=== PATIENT | female | born 1940 | race Caucasian/White ===

== ENCOUNTER 2023-02-02 03:42 | Inpatient (IN) | payer BC ==
[~2023-02-02] VITALS: Ht 165.1 cm; Wt 61.4 kg
[~2023-02-02 03:42] MED LIST: CARV-49 PO; CEPH-571 PO
[2023-02-02] MEDS ORDERED: diltiazem 5mg/ml 5ml inj. IV ONE ×3 (04:30→06:55)
[2023-02-02] MEDS ORDERED: normal saline 1000ml 1,000 ML IV ONE (04:30)
[2023-02-02 04:41] LABS: BASOPHILS # (AUTO) 0.1 X10'3 (0-0.2); BASOPHILS % (AUTO) 1.9 % (0-1); EOSINOPHILS # (AUTO) 0.2 X10'3 (0-0.9); EOSINOPHILS % (AUTO) 2.6 % (0-6); HEMATOCRIT 40.2 % (35.0-45.0); HEMOGLOBIN 13.7 g/dl (12.0-16.0); LYMPHOCYTES # (AUTO) 1.8 X10'3 (1.1-4.8); LYMPHOCYTES % (AUTO) 25.9 % (21-51); MEAN CORPUSCULAR HGB CONC 34.1 g/dL (33.0-36.5); MEAN CORPUSCULAR VOLUME 90.9 FL (78-98); MEAN PLATELET VOLUME 7.7 FL (7.4-10.4); MONOCYTES # (AUTO) 0.5 X10'3 (0-0.9); MONOCYTES % (AUTO) 7.5 % (2-12); NEUTROPHILS # (AUTO) 4.3 X10'3 (1.8-7.7); NEUTROPHILS % (AUTO) 62.1 % (42-75); PLATELET COUNT 224 X10'3 (140-440); RED BLOOD COUNT 4.42 X10'6 (4.20-5.60); RED CELL DISTRIBUTION WIDTH 13.9 % (11.5-14.5)
[2023-02-02 05:00] LABS: ALANINE AMINOTRANSFERASE 23 U/L (12-78); ALBUMIN/GLOBULIN RATIO 0.8 (1.1-1.5); ALKALINE PHOSPHATASE 64 IU/L (46-116); ANION GAP 12 (8-16); ASPARTATE AMINO TRANSFERASE 19 U/L (10-37); BILIRUBIN,TOTAL 0.8 MG/DL (0.1-1.0); BLOOD UREA NITROGEN 12 MG/DL (7-18); CALCIUM 8.9 MG/DL (8.5-10.1); CHLORIDE 104 MMOL/L (99-107); CREATININE 0.75 MG/DL (0.40-0.90); GLUCOSE 133 MG/DL (70-104); PRO BRAIN NATRIURETIC PEPTIDE 777 PG/ML (0-450); SODIUM 140 MMOL/L (135-145); TOTAL CARBON DIOXIDE 24.4 MMOL/L (24-32); TOTAL PROTEIN 6.6 G/DL (6.4-8.2); eCRCL 51 ML/MIN; eGFR 74 ML/MIN
[2023-02-02 05:06] LABS: POTASSIUM 2.6 MMOL/L (3.5-5.1)
[2023-02-02] MEDS ORDERED: POTASSIUM BICARB 20meq eff tab 20 MEQ TABLET.EFF PO ONE (05:10)
[2023-02-02] MEDS ORDERED: magnesium 2GM in 50ml NS 50 ML IV ONE (05:10)
[2023-02-02] MEDS ORDERED: potassium Cl 40MEQ/1/2NS 520ml 520 ML IV ONE (05:10)
[2023-02-02] MEDS ORDERED: diltiazem-NS 100mg/100ml 100 ML IV ONE (06:55)
[2023-02-02 07:10] LABS: ELLIPTOCYTES 2+; PLATELET ESTIMATE NORMAL; TOTAL CELLS COUNTED 100
[2023-02-02 07:11] LABS: BURR CELLS FEW; SCHISTOCYTES FEW
[2023-02-02 08:27] LABS: ALANINE AMINOTRANSFERASE 14 U/L (12-78); ALBUMIN 2.6 G/DL (3.4-5.0); ALBUMIN/GLOBULIN RATIO 0.8 (1.1-1.5); ALKALINE PHOSPHATASE 54 IU/L (46-116); ANION GAP 11 (8-16); ASPARTATE AMINO TRANSFERASE 19 U/L (10-37); BILIRUBIN,TOTAL 0.5 MG/DL (0.1-1.0); BLOOD UREA NITROGEN 11 MG/DL (7-18); BUN/CREATININE RATIO 17.5 (10.0-20.0); CALCIUM 8.2 MG/DL (8.5-10.1); CHLORIDE 107 MMOL/L (99-107); CREATININE 0.63 MG/DL (0.40-0.90); GLUCOSE 118 MG/DL (70-104); MAGNESIUM 2.5 MG/DL (1.5-2.4); POTASSIUM 3.6 MMOL/L (3.5-5.1); SODIUM 141 MMOL/L (135-145); TOTAL CARBON DIOXIDE 23.5 MMOL/L (24-32); TOTAL PROTEIN 5.9 G/DL (6.4-8.2); eCRCL 61 ML/MIN; eGFR 90 ML/MIN
[2023-02-02] MEDS ORDERED: potassium Cl 20 mEq SR tablet PO PRN (08:55)
[2023-02-02] MEDS ORDERED: morphine 2 MG/ML inj. syringe IV PRN (08:55)
[2023-02-02] MEDS ORDERED: diltiazem-NS 100mg/100ml 100 ML IV SCH (08:55)
[2023-02-02] MEDS ORDERED: acetaminophen 325mg tablet PO PRN ×2 (08:55)
[2023-02-02] MEDS ORDERED: potassium Cl 40MEQ/1/2NS 520ml 520 ML IV PRN (08:55)
[2023-02-02] MEDS ORDERED: magnesium 2GM in 50ml NS 50 ML IV PRN (08:55)
[2023-02-02] MEDS ORDERED: magnesium 4gm in 100ml NS 100 ML IV PRN (08:55)
[2023-02-02] MEDS ORDERED: HYDROcodone/acetaminophen 5mg/325mg tablet PO PRN (08:55)
[2023-02-02] MEDS ORDERED: magnesium Cl slow-release 64mg tablet PO PRN (08:55)
[2023-02-02] MEDS ORDERED: ondansetron/PF 4mg/2ml inj IV PRN (08:55)
[2023-02-02 09:16] LABS: C DIFF ANTIGEN NEGATIVE (NEGATIVE); C DIFF SPECIMEN=DIARRHEA? ACCEPTABLE; C DIFFICILE TOXINS A&B NEGATIVE (Neg)
[2023-02-02] MEDS: normal saline 1000ml 1,000 ML IV SCH (09:20)
[2023-02-02] MEDS ORDERED: ATOR40TA72 PO (11:25)
[2023-02-02] MEDS ORDERED: SYN0.088T PO (11:25)
[2023-02-02] MEDS ORDERED: CARV6.253 PO (11:25)
[2023-02-02] MEDS ORDERED: APIX5TAB3 PO (11:25)
[2023-02-02] MEDS ORDERED: LEVO125T68 PO (13:00)
[2023-02-02] MEDS ORDERED: ASPI-611 PO (13:01)
[2023-02-02] MEDS ORDERED: MULT-1249 PO (13:01)
[2023-02-02 18:01] LABS: THYROID STIMULATING HORMONE 0.59 ulU/ml (0.34-4.50)
[2023-02-02] MEDS ORDERED: loperamide 2mg capsule PO PRN (18:30)
[2023-02-02] MEDS: amiodarone 200mg tablet PO SCH (19:43)
[2023-02-02] MEDS: apixaban 5mg tablet PO SCH (19:43)
[2023-02-02] MEDS: carvedilol 6.25mg tablet PO SCH (19:43)
[2023-02-02] MEDS ORDERED: atorvastatin 20mg tablet PO SCH (21:00)
--- NOTE | 2023-02-02 21:17 | NUR ---
CHANGED PT TO HOSPITAL BED FOR COMFORT, WARM BLANKETS AND PILLOWS PROVIDED, POSITIONED FOR COMFORT, AND LIGHTS OFF
[2023-02-03] MEDS: loperamide 2mg capsule PO PRN ×2 (01:56→09:32)
[2023-02-03] MEDS ORDERED: levoTHYROXINE 125mcg tablet PO SCH (07:00)
[2023-02-03] MEDS: normal saline 1000ml 1,000 ML IV SCH ×3 (07:18→23:38)
[2023-02-03] MEDS: carvedilol 6.25mg tablet PO SCH ×2 (07:20→19:49)
[2023-02-03] MEDS: amiodarone 200mg tablet PO SCH ×2 (07:20→19:45)
[2023-02-03] MEDS: apixaban 5mg tablet PO SCH ×2 (07:21→19:49)
[2023-02-03 07:24] LABS: BASOPHILS % (AUTO) 0.2 % (0-1); EOSINOPHILS # (AUTO) 0.1 X10'3 (0-0.9); EOSINOPHILS % (AUTO) 2.1 % (0-6); HEMATOCRIT 38.1 % (35.0-45.0); HEMOGLOBIN 12.6 g/dl (12.0-16.0); LYMPHOCYTES # (AUTO) 2.3 X10'3 (1.1-4.8); LYMPHOCYTES % (AUTO) 31.7 % (21-51); MEAN CORPUSCULAR HEMOGLOBIN 30.9 PG (27.0-31.0); MEAN CORPUSCULAR HGB CONC 33.2 g/dL (33.0-36.5); MONOCYTES # (AUTO) 0.9 X10'3 (0-0.9); MONOCYTES % (AUTO) 12.4 % (2-12); NEUTROPHILS # (AUTO) 3.8 X10'3 (1.8-7.7); NEUTROPHILS % (AUTO) 53.6 % (42-75); PLATELET COUNT 208 X10'3 (140-440); RED CELL DISTRIBUTION WIDTH 14.4 % (11.5-14.5); WHITE BLOOD COUNT 7.1 X10'3 (4.5-11.0)
[2023-02-03] MEDS: aspirin 81mg tab.chew PO SCH (07:26)
[2023-02-03] MEDS ORDERED: enoxaparin 40mg/0.4ml syringe SUBCUT SCH (08:00)
[2023-02-03 08:08] LABS: ALANINE AMINOTRANSFERASE 16 U/L (12-78); ALBUMIN 2.5 G/DL (3.4-5.0); ALBUMIN/GLOBULIN RATIO 0.7 (1.1-1.5); ALKALINE PHOSPHATASE 57 IU/L (46-116); ANION GAP 10 (8-16); ASPARTATE AMINO TRANSFERASE 18 U/L (10-37); BILIRUBIN,TOTAL 0.7 MG/DL (0.1-1.0); BLOOD UREA NITROGEN 9 MG/DL (7-18); BUN/CREATININE RATIO 12.9 (10.0-20.0); CALCIUM 8.2 MG/DL (8.5-10.1); CHLORIDE 105 MMOL/L (99-107); GLUCOSE 106 MG/DL (70-104); POTASSIUM 3.2 MMOL/L (3.5-5.1); SODIUM 140 MMOL/L (135-145); TOTAL CARBON DIOXIDE 25.4 MMOL/L (24-32); TOTAL PROTEIN 6.1 G/DL (6.4-8.2); eCRCL 55 ML/MIN; eGFR 80 ML/MIN
[2023-02-03 10:57] LABS: MAGNESIUM 2.1 MG/DL (1.5-2.4)
[2023-02-03] MEDS ORDERED: diphenoxylate/atropine tablet (Lomotil) PO SCH ×2 (12:01→14:00)
[2023-02-03] MEDS: loperamide 2mg capsule PO SCH ×5 (12:10→23:36)
--- NOTE | 2023-02-03 12:29 | NUR ---
STOOL SAMPLE COLLECTED, LABELED AND WALKED TO LAB BY THIS CRAFT RECRUITER
[2023-02-03] MEDS ORDERED: bismuth subsalicylate 262mg chew tablet PO PRN (12:36)
[2023-02-03] MEDS ORDERED: bismuth subsalicylate 262mg/15ml oral suspension PO PRN ×2 (12:38→12:40)
[2023-02-03] MEDS ORDERED: bismuth subsalicylate 262mg/15ml oral suspension PO SCH (13:40)
[2023-02-03 14:12] VITALS: BP 107/49; PULSE 67; RESP 18; TEMP 97.1; O2SAT 92
--- NOTE | 2023-02-03 14:29 | NUR ---
Patient on the unit. Family at bedside. Patient has her home medications. Family will take home medications.
[2023-02-03 15:00] VITALS: RESP 16
[2023-02-03] MEDS: bismuth subsalicylate 262mg/15ml oral suspension PO SCH ×3 (16:53→23:36)
[2023-02-03] MEDS ORDERED: ondansetron 4mg rapidly disintigrating tab PO PRN (17:35)
[2023-02-03 18:00] VITALS: BP 113/57; PULSE 75; RESP 13; TEMP 98.2; O2SAT 98
--- NOTE | 2023-02-03 18:26 | NUR ---
Patient in room PCU 3016. I have received report from Erna SIMMS and had the opportunity to ask questions and assume patient care.
--- NOTE | 2023-02-03 20:00 | NUR ---
pt refused amiodarone as ordered. stated that she doesnt like how it makes her feel and that she feel weak. educated pt but pt does not want it. will continue to monitor
[2023-02-03 22:30] VITALS: BP 114/54; PULSE 68; RESP 18; TEMP 98; O2SAT 98
[2023-02-03] MEDS: potassium Cl 20 mEq SR tablet PO PRN (23:36)
[2023-02-04 02:30] VITALS: BP 124/59; PULSE 61; RESP 18; TEMP 98; O2SAT 98
[2023-02-04] MEDS: bismuth subsalicylate 262mg/15ml oral suspension PO SCH ×6 (03:29→23:46)
[2023-02-04] MEDS: loperamide 2mg capsule PO SCH ×6 (03:30→23:46)
[2023-02-04 06:22] LABS: BASOPHILS % (AUTO) 0.3 % (0-1); EOSINOPHILS # (AUTO) 0.2 X10'3 (0-0.9); EOSINOPHILS % (AUTO) 3.2 % (0-6); HEMATOCRIT 32.7 % (35.0-45.0); HEMOGLOBIN 11.1 g/dl (12.0-16.0); LYMPHOCYTES # (AUTO) 1.8 X10'3 (1.1-4.8); LYMPHOCYTES % (AUTO) 28.8 % (21-51); MEAN CORPUSCULAR HEMOGLOBIN 31.3 PG (27.0-31.0); MEAN PLATELET VOLUME 7.9 FL (7.4-10.4); MONOCYTES # (AUTO) 0.8 X10'3 (0-0.9); MONOCYTES % (AUTO) 12.2 % (2-12); NEUTROPHILS # (AUTO) 3.5 X10'3 (1.8-7.7); NEUTROPHILS % (AUTO) 55.5 % (42-75); PLATELET COUNT 191 X10'3 (140-440); RED BLOOD COUNT 3.55 X10'6 (4.20-5.60); RED CELL DISTRIBUTION WIDTH 13.7 % (11.5-14.5); WHITE BLOOD COUNT 6.3 X10'3 (4.5-11.0)
[2023-02-04 06:30] VITALS: BP 113/55; PULSE 67; RESP 12; TEMP 97.7; O2SAT 96
[2023-02-04 06:30] LABS: ALANINE AMINOTRANSFERASE 17 U/L (12-78); ALBUMIN 2.1 G/DL (3.4-5.0); ALBUMIN/GLOBULIN RATIO 0.7 (1.1-1.5); ALKALINE PHOSPHATASE 62 IU/L (46-116); ANION GAP 5 (8-16); ASPARTATE AMINO TRANSFERASE 18 U/L (10-37); BILIRUBIN,TOTAL 0.4 MG/DL (0.1-1.0); BLOOD UREA NITROGEN 8 MG/DL (7-18); BUN/CREATININE RATIO 9.6 (10.0-20.0); CHLORIDE 108 MMOL/L (99-107); CREATININE 0.83 MG/DL (0.40-0.90); GLUCOSE 101 MG/DL (70-104); SODIUM 143 MMOL/L (135-145); TOTAL CARBON DIOXIDE 29.6 MMOL/L (24-32); TOTAL PROTEIN 5.2 G/DL (6.4-8.2); eCRCL 46 ML/MIN; eGFR 66 ML/MIN
--- NOTE | 2023-02-04 06:30 | NUR ---
Patient in room PCU 3016. I have received report from Emely SIMMS and had the opportunity to ask questions and assume patient care.
--- NOTE | 2023-02-04 06:30 | NUR ---
Problems reprioritized. Patient report given, questions answered & plan of care reviewed with Marquita SIMMS.
[2023-02-04] MEDS: carvedilol 6.25mg tablet PO SCH ×2 (08:00→20:00)
[2023-02-04] MEDS: amiodarone 200mg tablet PO SCH ×2 (08:00→20:00)
[2023-02-04] MEDS: aspirin 81mg tab.chew PO SCH (08:00)
[2023-02-04] MEDS: levoTHYROXINE 100mcg tablet PO SCH (08:13)
[2023-02-04] MEDS: apixaban 5mg tablet PO SCH ×2 (08:15→19:08)
[2023-02-04] MEDS: potassium Cl 20 mEq SR tablet PO PRN ×3 (08:16→23:46)
--- NOTE | 2023-02-04 08:38 | NUR ---
Patient refused to take Amiodarone and Coreg today, Patient would like to speak with the Programming Development Project Manager. Patient states Dr Shepherd had her on the amiodarone which was causing her diarrhea so he took her off and changed to Coreg. Now the Coreg is causing her issues. Patient will hold off for now until she speaks with the Programming Development Project Manager. Ivana Avalos is aware
[2023-02-04 08:43] VITALS: RESP 16
[2023-02-04] MEDS ORDERED: Potassium Cl inj 20 MEQ in normal saline 1000ml 990 ML IV SCH (09:30)
--- NOTE | 2023-02-04 10:04 | NUR ---
Dr Peacock and Resident at patient bedside. Patient agitated, Per Dr Peacock for replacement on K+ of 3.0 today for the next 2 doses only given 20 MEQ each dose. Also, recheck patients K+ and Mg at 1600.
[2023-02-04 10:29] LABS: MAGNESIUM 1.9 MG/DL (1.5-2.4)
[2023-02-04] MEDS: potassium Cl 20mEq in NS 1,000 ML IV SCH ×2 (12:16→23:45)
[2023-02-04 12:30] VITALS: BP 113/65; PULSE 79; RESP 18; TEMP 97.7; O2SAT 90
--- NOTE | 2023-02-04 12:30 | NUR ---
Left message on Dr Allen cell v/m to call me back regarding + BC, Also, patient understands the limited code status and would like to remain a limited code no intubation/ ventilation.
[2023-02-04 14:47] VITALS: BP 103/46; PULSE 69; RESP 16; TEMP 98; O2SAT 98
[2023-02-04] MEDS ORDERED: aspirin 81mg tab.chew PO SCH (16:10)
--- NOTE | 2023-02-04 17:00 | NUR ---
Dr Peacock aware of patients + BC GM + Cocci in clusters. Dr Peacock believes this to be contaminant. Dr Peacock is aware I will page her with patients K+ Mg Results
[2023-02-04 17:51] LABS: MAGNESIUM 1.8 MG/DL (1.5-2.4)
--- NOTE | 2023-02-04 18:04 | NUR ---
PAGER ID: [phone] MESSAGE: Marquita PCU [id number] Re: Gregory [id number] K+ 3.0 Mg 1.8 please call for instructions Addendum: 02/04/23 at 1819 by Marquita Gross RN Received orders to replace K+ per protocol, add a magnesium on to labs
--- NOTE | 2023-02-04 18:55 | NUR ---
Problems reprioritized. Patient report given, questions answered & plan of care reviewed with Emely SIMMS.
--- NOTE | 2023-02-04 20:00 | NUR ---
pt refuses coreg and cordarone stating they give her diarrhea and that is what makes her feel funny. educated pt. will continue to monitor
[2023-02-04 23:00] VITALS: BP 116/71; PULSE 112; RESP 18; TEMP 97.9; O2SAT 97
[2023-02-05 03:30] VITALS: BP 122/59; PULSE 80; RESP 18; TEMP 97.9; O2SAT 92
[2023-02-05] MEDS: bismuth subsalicylate 262mg/15ml oral suspension PO SCH ×2 (03:38→09:52)
[2023-02-05] MEDS: potassium Cl 20 mEq SR tablet PO PRN (03:38)
[2023-02-05] MEDS: loperamide 2mg capsule PO SCH ×2 (03:38→08:46)
--- NOTE | 2023-02-05 06:08 | NUR ---
Problems reprioritized. Patient report given, questions answered & plan of care reviewed with Marquita SIMMS.
[2023-02-05 06:30] VITALS: BP 112/54; PULSE 80; RESP 17; TEMP 97.8; O2SAT 97
--- NOTE | 2023-02-05 06:52 | NUR ---
Patient in room PCU 3016. I have received report from Emely SIMMS and had the opportunity to ask questions and assume patient care.
[2023-02-05 07:08] VITALS: RESP 16
[2023-02-05 07:27] LABS: BASOPHILS % (AUTO) 0.3 % (0-1); EOSINOPHILS # (AUTO) 0.1 X10'3 (0-0.9); HEMOGLOBIN 12.1 g/dl (12.0-16.0); LYMPHOCYTES # (AUTO) 1.8 X10'3 (1.1-4.8); MONOCYTES # (AUTO) 0.9 X10'3 (0-0.9); RED CELL DISTRIBUTION WIDTH 14.2 % (11.5-14.5)
[2023-02-05 07:29] LABS: EOSINOPHILS % (AUTO) 1.7 % (0-6); HEMATOCRIT 36.4 % (35.0-45.0); LYMPHOCYTES % (AUTO) 28.2 % (21-51); MEAN CORPUSCULAR HEMOGLOBIN 30.6 PG (27.0-31.0); MEAN CORPUSCULAR HGB CONC 33.1 g/dL (33.0-36.5); MEAN CORPUSCULAR VOLUME 92.5 FL (78-98); MEAN PLATELET VOLUME 8.1 FL (7.4-10.4); MONOCYTES % (AUTO) 14.3 % (2-12); NEUTROPHILS # (AUTO) 3.5 X10'3 (1.8-7.7); NEUTROPHILS % (AUTO) 55.5 % (42-75); PLATELET COUNT 234 X10'3 (140-440); RED BLOOD COUNT 3.94 X10'6 (4.20-5.60); WHITE BLOOD COUNT 6.3 X10'3 (4.5-11.0)
[2023-02-05 07:49] LABS: ALANINE AMINOTRANSFERASE 19 U/L (12-78); ALBUMIN 2.3 G/DL (3.4-5.0); ALBUMIN/GLOBULIN RATIO 0.6 (1.1-1.5); ALKALINE PHOSPHATASE 62 IU/L (46-116); ANION GAP 6 (8-16); ASPARTATE AMINO TRANSFERASE 21 U/L (10-37); BILIRUBIN,TOTAL 0.4 MG/DL (0.1-1.0); BLOOD UREA NITROGEN 4 MG/DL (7-18); BUN/CREATININE RATIO 5.6 (10.0-20.0); CALCIUM 7.9 MG/DL (8.5-10.1); CHLORIDE 107 MMOL/L (99-107); CREATININE 0.71 MG/DL (0.40-0.90); GLUCOSE 105 MG/DL (70-104); MAGNESIUM 1.7 MG/DL (1.5-2.4); POTASSIUM 4.1 MMOL/L (3.5-5.1); SODIUM 140 MMOL/L (135-145); TOTAL CARBON DIOXIDE 26.6 MMOL/L (24-32); eCRCL 53 ML/MIN; eGFR 78 ML/MIN
[2023-02-05] MEDS: carvedilol 6.25mg tablet PO SCH (08:00)
[2023-02-05] MEDS: amiodarone 200mg tablet PO SCH (08:00)
[2023-02-05] MEDS ORDERED: LEVO100T9 PO (08:25)
[2023-02-05] MEDS ORDERED: BISM-51 PO (08:25)
[2023-02-05] MEDS ORDERED: LOPE2CAP PO (08:25)
[2023-02-05] MEDS: apixaban 5mg tablet PO SCH (08:46)
[2023-02-05] MEDS: levoTHYROXINE 100mcg tablet PO SCH (08:46)
--- NOTE | 2023-02-05 10:51 | NUR ---
Patient discharge instructions reviewed with patient and patient verbalized understanding. Patient is waiting for family to come and pick her up and bring her clothes. Patients will still need her IV dc'd on discharge and her Tele dc'd
[2023-02-05 10:57] LABS: TOTAL CELLS COUNTED 100
[2023-02-05 10:58] LABS: PLATELET ESTIMATE NORMAL
[2023-02-05 11:01] LABS: BURR CELLS FEW; ELLIPTOCYTES FEW
[2023-02-05 11:05] LABS: TOXIC GRANULATION 1+; TOXIC VACUOLATION FEW
--- NOTE | 2023-02-05 11:30 | NUR ---
Patient states she has all her belongings. Patient take to sisters vehicle via wheelchair
== END 2023-02-05 12:00 | disposition home or self-care (01) | DRG 641 ==
LOC: ER 03:43 → ED HOLD 09:02 → PCU 3S 02-03 13:27
PROVIDERS: ADMIT Internal Medicine; ATTEND Internal Medicine
DX: E87.6 Hypokalemia (principal); I50.32 Chronic diastolic (congestive) heart failure; I48.92 Unspecified atrial flutter; I48.0 Paroxysmal atrial fibrillation; K58.9 Irritable bowel syndrome, unspecified; I11.0 Hypertensive heart disease with heart failure; Z20.822 Contact with and (suspected) exposure to COVID-19; E03.9 Hypothyroidism, unspecified; E78.5 Hyperlipidemia, unspecified; I25.10 Atherosclerotic heart disease of native coronary artery without angina pectoris; I25.9 Chronic ischemic heart disease, unspecified; Z79.01 Long term (current) use of anticoagulants; Z79.899 Other long term (current) drug therapy; Z90.710 Acquired absence of both cervix and uterus; Z82.3 Family history of stroke; Z87.891 Personal history of nicotine dependence; Z95.5 Presence of coronary angioplasty implant and graft; Z86.73 Personal history of transient ischemic attack (TIA), and cerebral infarction without residual deficits; Z82.49 Family history of ischemic heart disease and other diseases of the circulatory system; Z88.0 Allergy status to penicillin
CPT/HCPCS: 36415; 71045; 80053; 83735; 83880; 84132; 84145; 84443; 84484; 85007; 85025; 87040; 87045; 87046; 87077; 87081; 87186; 87324; 87449; 87811; 89055; 93005; 93306; 97116; 97161; 97530; 99285; C2617; G0378; J3475; J3480; J3490; J7030

== ENCOUNTER 2023-04-02 06:40 | Inpatient (IN) | payer BC ==
[2023-04-01 10:59] LABS: BASOPHILS % (AUTO) 0.6 % (0-1); EOSINOPHILS # (AUTO) 0.1 X10'3 (0-0.9); EOSINOPHILS % (AUTO) 1.3 % (0-6); LYMPHOCYTES # (AUTO) 1.5 X10'3 (1.1-4.8); LYMPHOCYTES % (AUTO) 28.9 % (21-51); MEAN CORPUSCULAR HEMOGLOBIN 31.5 PG (27.0-31.0); MEAN CORPUSCULAR HGB CONC 33.1 g/dL (33.0-36.5); MEAN CORPUSCULAR VOLUME 95.1 FL (78-98); MEAN PLATELET VOLUME 7.3 FL (7.4-10.4); MONOCYTES # (AUTO) 0.3 X10'3 (0-0.9); MONOCYTES % (AUTO) 6.4 % (2-12); NEUTROPHILS # (AUTO) 3.2 X10'3 (1.8-7.7); NEUTROPHILS % (AUTO) 62.8 % (42-75); PRE OP HEMATOCRIT 38.5 % (35.0-45.0); PRE OP HEMOGLOBIN 12.7 g/dL (12.0-16.0); PRE OP PLATELET COUNT 255 X10'3 (140-440); PRE OP WHITE BLOOD COUNT 5.1 10'3 (4.8-10.8); RED BLOOD COUNT 4.05 X10'6 (4.20-5.60); RED CELL DISTRIBUTION WIDTH 15.8 % (11.5-14.5)
[2023-04-01 11:01] LABS: BILIRUBIN,URINE NEGATIVE (Neg); CLARITY,URINE SLIGHTLY CLOUDY (Clear); COLOR,URINE YELLOW (Yellow); GLUCOSE, URINE NEGATIVE (Neg); KETONES,URINE NEGATIVE (Neg); LEUKOCYTE ESTERASE ,URINE LARGE (Neg); NITRITES, URINE NEGATIVE (Neg); OCCULT BLOOD,URINE TRACE-INTACT (Neg); PH,URINE 6.5 (4.8-8.0); PROTEIN,URINE NEGATIVE (Neg); UROBILINOGEN,URINE 0.2 E.U/dL (0.2-1.0)
[2023-04-01 11:08] LABS: SQUAMOUS EPITHELIAL CELL,UR MANY /LPF (FEW); UA COLLECTION TYPE VOIDED
[2023-04-01 11:09] LABS: TRANSITIONAL EPI CELLS,URINE MANY /HPF
[2023-04-01 11:10] LABS: WBC,URINE 30-50 /HPF (0-4)
[2023-04-01 11:11] LABS: BACTERIA,URINE 2+ /HPF (Neg)
[2023-04-01 11:15] LABS: PRE OP PROTIME 10.7 SECONDS (9.0-12.0)
[2023-04-01 11:28] LABS: ALBUMIN 3.4 G/DL (3.4-5.0); ALBUMIN/GLOBULIN RATIO 1.1 (1.1-1.5); ALKALINE PHOSPHATASE 66 IU/L (46-116); BLOOD UREA NITROGEN 14 MG/DL (7-18); BUN/CREATININE RATIO 17.9 (10.0-20.0); CALCIUM 9.2 MG/DL (8.5-10.1); CHLORIDE 107 MMOL/L (99-107); CREATININE 0.78 MG/DL (0.40-0.90); PRE OP ALT 26 U/L (30-65); PRE OP ANION GAP 3 (8-16); PRE OP AST 20 U/L (10-37); PRE OP BILIRUB, TOTAL 0.4 MG/DL (0.0-1.0); PRE OP GLUCOSE 75 MG/DL (70-104); PRE OP POTASSIUM 3.9 MMOL/L (3.4-5.1); PRE OP SODIUM 142 MMOL/L (135-145); TOTAL CARBON DIOXIDE 32.3 MMOL/L (24-32); TOTAL PROTEIN 6.6 G/DL (6.4-8.2); eGFR 70 ML/MIN
[2023-04-02] VITALS (24 sets, daily range): BP systolic 102–134; BP diastolic 54–87; PULSE 70–93; RESP 12–24; TEMP 97.1–97.5; O2SAT 87–100
[~2023-04-02] VITALS: Ht 165.1 cm; Wt 97.1 kg
[~2023-04-02 06:40] MED LIST changes: +APIX5TAB3 PO; +ASPI-611 PO; +ATOR80TA PO; +CALCIUM PO; -CARV-49 PO; -CEPH-571 PO; +DOCO1CAP11 PO; +LEVO125T68 PO; +MULTIVITAMIN PO; +clindamycin-Cleocin 900mg/D5W 50 ML IV ONE; +famotidine 20mg tablet PO ONE; +nitroPRUSSIDE (NIPRIDE) (200MCG/ML) 100ML Drip IV SCH; +ondansetron/PF 4mg/2ml inj IV PRN; +phenylephrine inj 50 MG in normal saline 250ml IV solN IV SCH; +ringers solution, lacted 1,000 ML IV SCH; +vancomycin/NS 1 GM in NS 250 ML IV ONE
[2023-04-02] MEDS ORDERED: meperidine/PF 25mg/ml syringe IV PRN ×3 (07:25)
[2023-04-02] MEDS ORDERED: morphine 4 MG/ML inj SYRINge IV PRN (07:25)
[2023-04-02] MEDS ORDERED: proCHLORperazine 10 MG/2 ml inj IV PRN ×2 (07:25→10:30)
[2023-04-02] MEDS ORDERED: ondansetron/PF 4mg/2ml inj IV PRN ×2 (07:25→10:30)
[2023-04-02] MEDS ORDERED: ringers solution, lacted 1,000 ML IV SCH (07:25)
[2023-04-02] MEDS ORDERED: morphine 2 MG/ML inj. syringe IV PRN (07:25)
[2023-04-02] MEDS ORDERED: LIDOcaine 1% (10mg/ml) 2ml vial ONE (08:29)
[2023-04-02] MEDS ORDERED: midazolam 1 mg/ML 2ml injection ONE (08:51)
[2023-04-02] MEDS ORDERED: fentaNYL/PF 50MCG/1 ML 2ML syringe ONE (08:51)
[2023-04-02] MEDS ORDERED: dexamethasone sod phosphate 4mg/ml inj. ONE (09:08)
[2023-04-02] MEDS ORDERED: neostigmine methylsulfate 1 MG/ML 10ml vial ONE (09:08)
[2023-04-02] MEDS ORDERED: glycopyrrolate 0.2mg/ml inj ONE (09:08)
[2023-04-02] MEDS ORDERED: ondansetron/PF 4mg/2ml inj ONE (09:08)
[2023-04-02] MEDS ORDERED: sevoflurane 250ml liquid IH ONE (09:08)
[2023-04-02] MEDS ORDERED: iohexol 350 MG/ML 50ML vial IV ONE ×2 (09:09→10:20)
[2023-04-02] MEDS ORDERED: rocuronium 10mg/ml inj IV ONE (10:30)
[2023-04-02] MEDS ORDERED: magnesium 2GM in 50ml NS 50 ML IV PRN (10:30)
[2023-04-02] MEDS ORDERED: labetalol 20mg/4ml (5mg/ml) syringe IV PRN (10:30)
[2023-04-02] MEDS ORDERED: pantoprazole 40mg Tablet.DR PO PRN (10:30)
[2023-04-02] MEDS ORDERED: potassium Cl 20mEq/100mL bag 100 ML IV PRN (10:30)
[2023-04-02] MEDS ORDERED: magnesium 4gm in 100ml NS 100 ML IV PRN (10:30)
[2023-04-02] MEDS ORDERED: potassium Cl 40MEQ/1/2NS 520ml 520 ML IV PRN (10:30)
[2023-04-02] MEDS ORDERED: potassium CL 10mEq/100ml bag 100 ML IV PRN (10:30)
[2023-04-02] MEDS ORDERED: potassium Cl 40MEQ/270ML bag 250 ML IV PRN (10:30)
[2023-04-02] MEDS ORDERED: heparin 1,000unit/ml 10ml vial 10 ML ONE (10:30)
[2023-04-02] MEDS ORDERED: hydrALAZINE 20mg/ml inj. IV PRN (10:30)
[2023-04-02] MEDS ORDERED: acetaminophen 325mg tablet PO PRN (10:30)
[2023-04-02] MEDS ORDERED: diphenhydrAMINE 25mg capsule PO PRN (10:30)
[2023-04-02] MEDS ORDERED: ALPRAZolam 0.25mg tablet PO PRN (10:30)
[2023-04-02] MEDS ORDERED: propofol inj 20 ML IV ONE (10:30)
[2023-04-02] MEDS ORDERED: docusate sod 100mg capsule PO PRN (10:30)
[2023-04-02] MEDS ORDERED: potassium Cl 20 mEq SR tablet PO PRN (10:30)
--- NOTE | 2023-04-02 10:40 | NUR ---
Received from OR via BED, accompanied by Anesthesiologist DR WOMACK and report given by Anesthesiologist AND RN ASSESSMENT. PT DROWSY BUT APPROPRIATE, STATES SHE IS COMFORTABLE. RIGHT GROIN W/SMALL GAUZE DRSG W/STOP COCK AND FIGURE [address], CDI, SOFT, NO S/S OF HEMATOMA, OOZING OR SWELLING. PT NEURO CHECKS INTACT, TONGUE MIDLINE, SMILE AND FROWN SYMMETRICAL, EYES OPEN AND CLOSE EQUAL, PUSH PULL/DOUGH MOLDER EQUAL STRENGTH BILAT UPPER EXTREMITIES, PUSH/PULL EQUAL STRENGTH BILAL LOWER EXTREMITIES. Addendum: 04/02/23 at 1126 by Sharri Draper RN Amended: Links added.
--- NOTE | 2023-04-02 11:55 | NUR ---
STOP COCK AND FIGURE 8 STITCH D/CD, NO BLEEDING OR OOZING, SMALL GAUZE DRSG APPLIED W/CLEAR DRSG PLACED OVER GAUZE. RIGHT RADIAL ARTERIAL LINE D/CD, PRESSURE HELD, HEMOSTASIS ACHIEVED, GAUZE DRSG W/COBAN PLACED. Addendum: 04/02/23 at 1207 by Sharri Draper RN Amended: Links added.
--- NOTE | 2023-04-02 12:40 | NUR ---
Report called to receiving nurse. Transferred ON TRANSPORT CM via BED W/2 BAGS OF Belongings, FRONT WHEEL SEATED WALKER TO ROOM 3024B. BLL, CALL LIGHT GIVEN, SIDE RAILS UP X 2, TELE AND VS MACHINE ATTACHED TO PT. RECEIVING RN AT BEDSIDE TO RECEIVE PT, ASSESSED RIGHT GROIN W/RN, NO CHANGES NOTED, SITE REMAINS SOFT W/NO OOZING OR SWELLING. RIGHT RADIAL SITE REMAINS W/O OOZING OR SWELLING WELL. PT REMAINS COMFORTABLE. Special Issues communicated to receiving nurse. YES. Addendum: 04/02/23 at 1255 by Sharri Draper RN Amended: Links added.
[2023-04-02] MEDS: normal saline 1000ml 1,000 ML IV SCH ×2 (13:00→20:30)
[2023-04-02] MEDS: sod chloride 0.9% 10ml flush syringe IV SCH (16:06)
[2023-04-02] MEDS ORDERED: ciprofloxacin 250mg tablet PO ONE (20:00)
[2023-04-02] MEDS ORDERED: apixaban 5mg tablet PO SCH (20:00)
[2023-04-02] MEDS: OMEGA-3/DHA/EPA/FISH OIL 1 EACH CAPSULE.DR PO SCH (20:22)
[2023-04-03] MEDS: sod chloride 0.9% 10ml flush syringe IV SCH ×2 (00:02→07:42)
[2023-04-03 00:15] VITALS: BP 112/62; PULSE 83; RESP 18; O2SAT 93
[2023-04-03 02:00] VITALS: BP 119/70; PULSE 87; RESP 18; TEMP 97.3; O2SAT 87
[2023-04-03 04:15] VITALS: BP 117/64; PULSE 78; RESP 15; O2SAT 77
[2023-04-03 06:00] VITALS: BP 125/71; PULSE 81; RESP 18; TEMP 97.5; O2SAT 97
[2023-04-03 06:52] LABS: BASOPHILS % (AUTO) 0.3 % (0-1); EOSINOPHILS % (AUTO) 0 % (0-6); HEMATOCRIT 33.8 % (35.0-45.0); HEMOGLOBIN 11.3 g/dl (12.0-16.0); LYMPHOCYTES # (AUTO) 1.4 X10'3 (1.1-4.8); LYMPHOCYTES % (AUTO) 17.9 % (21-51); MEAN CORPUSCULAR HEMOGLOBIN 31.6 PG (27.0-31.0); MEAN CORPUSCULAR HGB CONC 33.3 g/dL (33.0-36.5); MEAN PLATELET VOLUME 6.9 FL (7.4-10.4); MONOCYTES # (AUTO) 0.5 X10'3 (0-0.9); MONOCYTES % (AUTO) 6.1 % (2-12); NEUTROPHILS # (AUTO) 6.1 X10'3 (1.8-7.7); NEUTROPHILS % (AUTO) 75.7 % (42-75); PLATELET COUNT 199 X10'3 (140-440); RED BLOOD COUNT 3.56 X10'6 (4.20-5.60); RED CELL DISTRIBUTION WIDTH 15.5 % (11.5-14.5)
[2023-04-03 06:58] LABS: PROTHROMBIN TIME 10.8 SECONDS (9.0-12.0)
[2023-04-03 07:17] LABS: ALANINE AMINOTRANSFERASE 22 U/L (12-78); ALBUMIN 2.9 G/DL (3.4-5.0); ALKALINE PHOSPHATASE 49 IU/L (46-116); ANION GAP 5 (8-16); ASPARTATE AMINO TRANSFERASE 24 U/L (10-37); BILIRUBIN,TOTAL 0.6 MG/DL (0.1-1.0); BLOOD UREA NITROGEN 16 MG/DL (7-18); BUN/CREATININE RATIO 21.1 (10.0-20.0); CALCIUM 8.8 MG/DL (8.5-10.1); CHLORIDE 108 MMOL/L (99-107); CREATININE 0.76 MG/DL (0.40-0.90); GLUCOSE 120 MG/DL (70-104); POTASSIUM 4.1 MMOL/L (3.5-5.1); PRO BRAIN NATRIURETIC PEPTIDE 564 PG/ML (0-450); SODIUM 140 MMOL/L (135-145); TOTAL PROTEIN 5.7 G/DL (6.4-8.2); eCRCL 50 ML/MIN; eGFR 73 ML/MIN
[2023-04-03] MEDS: OMEGA-3/DHA/EPA/FISH OIL 1 EACH CAPSULE.DR PO SCH (07:42)
[2023-04-03] MEDS ORDERED: apixaban 5mg tablet PO SCH (08:00)
[2023-04-03] MEDS ORDERED: atorvastatin 20mg tablet PO SCH (08:00)
[2023-04-03] MEDS ORDERED: multivitamins, therapeutics tablet PO SCH (08:00)
[2023-04-03] MEDS ORDERED: levoTHYROXINE 125mcg tablet PO SCH (08:00)
[2023-04-03 11:00] VITALS: BP 119/60; PULSE 82; RESP 21; TEMP 97.3; O2SAT 96
[2023-04-03] MEDS ORDERED: CIPR-202 PO (12:59)
--- NOTE | 2023-04-03 13:25 | NUR ---
Discharge instructions discussed with pt. Watchman aftercare, new medication list, antibiotic for urinary infection and closure device card all discussed. upcoming appointments also addressed. All questions answered. Pt states she understands all instructions. Removed piv and administrative representative. pt's sister coming to machine operator picker pt. pt will leave unit via wheelchair to private car.
== END 2023-04-03 13:55 | disposition home or self-care (01) | DRG 274 ==
LOC: PAS IN 06:40 → PCU 3S 12:54
PROVIDERS: ADMIT Student in an Organized Health Care Education/Training Program; ATTEND Student in an Organized Health Care Education/Training Program
PROC: B24BZZ4 Ultrasonography of Heart with Aorta, Transesophageal (ICD-10-PCS; 2023-04-02)
PROC: 03HY32Z Insertion of Monitoring Device into Upper Artery, Percutaneous Approach (ICD-10-PCS; 2023-04-02)
PROC: 02L73DK Occlusion of Left Atrial Appendage with Intraluminal Device, Percutaneous Approach (ICD-10-PCS; principal; 2023-04-02 09:08)
DX: I48.91 Unspecified atrial fibrillation (principal); Z00.6 Encounter for examination for normal comparison and control in clinical research program; N39.0 Urinary tract infection, site not specified; I31.39 Other pericardial effusion (noninflammatory); E78.5 Hyperlipidemia, unspecified; I25.10 Atherosclerotic heart disease of native coronary artery without angina pectoris; E07.9 Disorder of thyroid, unspecified; Z88.0 Allergy status to penicillin; Z91.09 Other allergy status, other than to drugs and biological substances; Z95.5 Presence of coronary angioplasty implant and graft; Z86.73 Personal history of transient ischemic attack (TIA), and cerebral infarction without residual deficits; Z95.0 Presence of cardiac pacemaker; Z79.01 Long term (current) use of anticoagulants
CPT/HCPCS: 33340; 36415; 71045; 71046; 76937; 80053; 81001; 82948; 83735; 83880; 84443; 85025; 85347; 85610; 85730; 86885; 86900; 86901; 86920; 87077; 87081; 87088; 87186; 93005; 93308; 93312; A4618; A6258; A6449; C1889; C1893; C1894; G0378; J1100; J1644; J2250; J2370; J2405; J2704; J2710; J3010; J3370; J3490; J7030; J7040; J7050; J7120; Q9967

== ENCOUNTER 2023-05-29 13:12 | Day surgery (SDC) | payer BC ==
[2023-05-29] VITALS (10 sets, daily range): BP systolic 138–162; BP diastolic 75–102; PULSE 75–79; RESP 15–17; TEMP 98.2; O2SAT 96–100
[~2023-05-29] VITALS: Ht 165.1 cm; Wt 64.1 kg
[~2023-05-29 13:12] MED LIST changes: -ASPI-611 PO; +CIPR-202 PO; -clindamycin-Cleocin 900mg/D5W 50 ML IV ONE; -famotidine 20mg tablet PO ONE; -nitroPRUSSIDE (NIPRIDE) (200MCG/ML) 100ML Drip IV SCH; -ondansetron/PF 4mg/2ml inj IV PRN; -phenylephrine inj 50 MG in normal saline 250ml IV solN IV SCH; -ringers solution, lacted 1,000 ML IV SCH; -vancomycin/NS 1 GM in NS 250 ML IV ONE
[2023-05-29] MEDS ORDERED: ASPI-1071 PO (13:37)
[2023-05-29] MEDS ORDERED: MIDAZolam 1mg/ml 10ml vial IV ONE (13:50)
[2023-05-29] MEDS ORDERED: fentaNYL/PF 50MCG/1 ML 2ML syringe IV ONE (13:50)
[2023-05-29 14:14] LABS: BASOPHILS % (AUTO) 0.5 % (0-1); EOSINOPHILS # (AUTO) 0.1 X10'3 (0-0.9); EOSINOPHILS % (AUTO) 1.4 % (0-6); HEMOGLOBIN 14.8 g/dl (12.0-16.0); LYMPHOCYTES # (AUTO) 2.5 X10'3 (1.1-4.8); LYMPHOCYTES % (AUTO) 37.5 % (21-51); MEAN CORPUSCULAR HEMOGLOBIN 31.2 PG (27.0-31.0); MEAN CORPUSCULAR HGB CONC 33.7 g/dL (33.0-36.5); MEAN CORPUSCULAR VOLUME 92.5 FL (78-98); MEAN PLATELET VOLUME 7.5 FL (7.4-10.4); MONOCYTES # (AUTO) 0.4 X10'3 (0-0.9); MONOCYTES % (AUTO) 6.2 % (2-12); NEUTROPHILS # (AUTO) 3.6 X10'3 (1.8-7.7); NEUTROPHILS % (AUTO) 54.4 % (42-75); PLATELET COUNT 226 X10'3 (140-440); RED BLOOD COUNT 4.76 X10'6 (4.20-5.60); RED CELL DISTRIBUTION WIDTH 13.7 % (11.5-14.5); WHITE BLOOD COUNT 6.6 X10'3 (4.5-11.0)
[2023-05-29] MEDS ORDERED: normal saline 1000ml 1,000 ML IV SCH (14:25)
[2023-05-29 14:26] LABS: ALBUMIN 4.1 G/DL (3.4-5.0); ANION GAP 9 (8-16); BLOOD UREA NITROGEN 16 MG/DL (7-18); CALCIUM 9.7 MG/DL (8.5-10.1); CHLORIDE 104 MMOL/L (99-107); CREATININE 0.94 MG/DL (0.40-0.90); GLUCOSE 101 MG/DL (70-104); POTASSIUM 3.6 MMOL/L (3.5-5.1); SODIUM 141 MMOL/L (135-145); TOTAL CARBON DIOXIDE 28.5 MMOL/L (24-32); eCRCL 40 ML/MIN; eGFR 57 ML/MIN
[2023-05-29 14:28] LABS: APTT 36 SECONDS (22-32); PROTHROMBIN TIME 10.9 SECONDS (9.0-12.0)
== END 2023-05-29 16:55 | disposition home or self-care (01) ==
LOC: SSTAY O 13:12
PROVIDERS: ATTEND Student in an Organized Health Care Education/Training Program
DX: Z45.09 Encounter for adjustment and management of other cardiac device (principal); I25.10 Atherosclerotic heart disease of native coronary artery without angina pectoris; I48.0 Paroxysmal atrial fibrillation; E78.5 Hyperlipidemia, unspecified; I34.0 Nonrheumatic mitral (valve) insufficiency; Z79.899 Other long term (current) drug therapy; Z79.01 Long term (current) use of anticoagulants; Z79.82 Long term (current) use of aspirin; Z87.891 Personal history of nicotine dependence; Z95.5 Presence of coronary angioplasty implant and graft; Z88.8 Allergy status to other drugs, medicaments and biological substances; Z91.048 Other nonmedicinal substance allergy status
CPT/HCPCS: 36415; 80048; 85025; 85610; 85730; 93312; 94760; J2250; J3010; J7030; 96360